=== PATIENT | male | born 1985 | race Caucasian/White ===

== ENCOUNTER → 2023-10-23 10:54 | Outpatient (REF) | payer OTHER, SELFPAY | LOC: RAD 10:54 | PROVIDERS: ATTENDING PHYSICIAN Family Medicine | DX: Z76.89 Persons encountering health services in other specified circumstances (principal); M25.361 Other instability, right knee; G89.29 Other chronic pain; M25.562 Pain in left knee; M79.601 Pain in right arm | CPT/HCPCS: 73030; 73564 ==

== ENCOUNTER → 2025-04-29 09:38 | Outpatient (REF) | payer OTHER, SELFPAY | LOC: RAD 09:38 | PROVIDERS: ATTENDING PHYSICIAN Family Medicine | DX: M25.512 Pain in left shoulder (principal); G89.29 Other chronic pain | CPT/HCPCS: 73030 ==

== ENCOUNTER 2025-05-09 13:57 | Outpatient (RCR) | payer OTHER, SELFPAY | END 2025-05-09 23:59 | disposition home or self-care (01) | LOC: RPT 13:57 | PROVIDERS: ATTENDING PHYSICIAN Family Medicine | DX: M25.512 Pain in left shoulder (principal); Z73.6 Limitation of activities due to disability; M62.81 Muscle weakness (generalized) | CPT/HCPCS: 97010; 97110; 97140; 97162 ==